=== PATIENT | male | born 1965 | race Two or more races ===

== ENCOUNTER 2019-02-08 10:41 | Outpatient (CLI) | payer OTHER ==
[~2019-02-08 10:41] MED LIST: ALBUTEROL2.5 MG/3 M IH; ANORO ELLIPTA1 EACH; CLARITIN10 M1 PO; CLONAZEPAM1 MG; DOXYCYCLINE HY100 M2 PO; FLONASE16 GM; IOPHEN DM-100 MG/5 M PO; MEDROLPACK PO; PULMICORT1 MG/2 ML; SINGULAIR 10MG10 MG PO; SINGULAIR10 MG; ULTRAM50 MG PO; VENTOLIN HFA18 GM; VERIPRED 220 MG/5 ML
== END 2019-02-08 10:45 | disposition home or self-care (01) ==
LOC: RAD 10:41
DX: J45.998 Other asthma (principal)

== ENCOUNTER 2020-02-22 11:22 | Outpatient (CLI) | payer OTHER | END 2020-02-22 11:36 | disposition home or self-care (01) | LOC: NUCLEAR 11:22 | PROVIDERS: ATTEND Internal Medicine | DX: I87.2 Venous insufficiency (chronic) (peripheral) (principal) ==

== ENCOUNTER 2020-02-22 13:29 | Outpatient (CLI) | payer OTHER | END 2020-02-22 13:41 | disposition home or self-care (01) | LOC: MRI 13:29 → TOM 13:29 → MRI 13:41 | PROVIDERS: ATTEND Internal Medicine | DX: M54.5 Low back pain (principal); M43.26 Fusion of spine, lumbar region; N63.10 Unspecified lump in the right breast, unspecified quadrant; Z12.31 Encounter for screening mammogram for malignant neoplasm of breast; R92.0 Mammographic microcalcification found on diagnostic imaging of breast ==

== ENCOUNTER 2020-03-30 12:38 | Outpatient (CLI) | payer OTHER | END 2020-03-30 14:20 | disposition home or self-care (01) | LOC: SONOGRAMA 12:38 | PROVIDERS: ATTEND Surgery | DX: N60.11 Diffuse cystic mastopathy of right breast (principal); N60.12 Diffuse cystic mastopathy of left breast; R92.0 Mammographic microcalcification found on diagnostic imaging of breast ==

== ENCOUNTER 2020-08-03 08:21 | Outpatient (CLI) | payer OTHER | END 2020-08-03 08:31 | disposition home or self-care (01) | LOC: RAD 08:21 → SONOGRAMA 08:21 → RAD 08:31 | PROVIDERS: ATTEND Internal Medicine | DX: K76.0 Fatty (change of) liver, not elsewhere classified (principal); E78.49 Other hyperlipidemia ==

== ENCOUNTER 2020-10-30 07:48 | Outpatient (CLI) | payer OTHER | END 2020-10-30 07:50 | disposition home or self-care (01) | LOC: NUCLEAR 07:48 | PROVIDERS: ATTEND Internal Medicine | DX: M79.661 Pain in right lower leg (principal); M79.662 Pain in left lower leg ==

== ENCOUNTER 2022-04-29 14:31 | Outpatient (CLI) | payer OTHER | END 2022-04-29 15:19 | disposition home or self-care (01) | LOC: SONOGRAMA 14:31 | PROVIDERS: ATTEND Surgery | DX: N60.11 Diffuse cystic mastopathy of right breast (principal); N60.12 Diffuse cystic mastopathy of left breast ==

== ENCOUNTER 2023-09-02 13:19 | Emergency (ER) | payer OTHER ==
[~2023-09-02] VITALS: Ht 182.9 cm; Wt 99.8 kg
[2023-09-02 14:36] LABS: HEMATOCRIT 45.6 % (39.0-48.0); HEMOGLOBIN 15.3 g/dL (13-16.00); MEAN CELL VOLUME 81.1 fL (80.0-100.00); MEAN CORPUSCULAR HEMOGLOBIN 27.1 pg (27.00-32.0); MEAN CORPUSCULAR HGB CONC 33.5 g/dl (32.0-36.0); PLATELET COUNT 282 K/uL (150-450); RED BLOOD COUNT 5.63 M/uL (4.00-6.00); RED CELL DISTRIBUTION WIDTH 15.1 % (11.5-14.5)
[2023-09-02] MEDS ORDERED: TUSNEL LIQUID178 ML PO (15:10)
[2023-09-02] MEDS ORDERED: PEPCID AC20 MG PO (15:10)
[2023-09-02] MEDS ORDERED: PAXLOVID 300-11 EACH PO (15:10)
== END 2023-09-02 15:28 | disposition home or self-care (01) ==
LOC: ER 13:20
PROVIDERS: General Practice
DX: U07.1 COVID-19 (principal); Z88.2 Allergy status to sulfonamides; Z88.8 Allergy status to other drugs, medicaments and biological substances; Z87.09 Personal history of other diseases of the respiratory system
CPT/HCPCS: 36415; 96372; 99284; J1100